=== PATIENT | male | born 1970 | race Caucasian/White ===

== ENCOUNTER 2021-11-11 19:51 | Emergency (ER) | payer OTHER ==
[2021-11-11] MEDS ORDERED: Sodium Chloride 0.9% 1,000 ML IV SCH (21:30)
[2021-11-11] MEDS ORDERED: Sodium Chloride 0.9% 50 ML IV ONE (22:01)
[2021-11-11] MEDS ORDERED: Sodium Chloride 0.9% 10 ML Syringe FLUSH PRN (22:01)
[2021-11-11] MEDS ORDERED: Iopamidol 612 MG/ML 100 ML Bottle IV PRN (22:01)
[2021-11-12] MEDS ORDERED: Bacitracin Oint 1 GM U/D Packet TOP ONE (00:04)
== END 2021-11-12 00:29 | disposition home or self-care (01) ==
LOC: JP.ED 19:51
DX: S22.41XA Multiple fractures of ribs, right side, initial encounter for closed fracture (principal); S00.01XA Abrasion of scalp, initial encounter; V00.832A Motorized mobility scooter colliding with stationary object, initial encounter
CPT/HCPCS: 36415; 71260; 74177; 80048; 81001; 85025; 96360; 99285; J3490; J7030; Q9967; 99282